=== PATIENT | male | born 1995 | race Caucasian/White ===

== ENCOUNTER 2020-03-22 21:55 | Emergency (ER) | payer BC, OTHER ==
[~2020-03-22] VITALS: Ht 172.7 cm; Wt 122.7 kg
[2020-03-22] MEDS ORDERED: CETI-24 PO (22:02)
[2020-03-22] MEDS ORDERED: ZOLO100T PO (22:02)
[2020-03-22 22:54] LABS: BASO # 0.1 10^3/uL (0.0-0.2); BASO % 0.5 % (0.0-1.0); EOS # 0.2 10^3/uL (0.0-0.5); EOS % 2.4 % (0.0-3.0); HEMATOCRIT 46.7 % (42.0-52.0); LYMPH % 30.6 % (24.0-44.0); MEAN CORPUSCULAR HEMOGLOBIN 30.1 pg (27.0-33.0); MEAN CORPUSCULAR HGB CONC 34.3 g/dl (32.0-36.5); MEAN CORPUSCULAR VOLUME 87.9 fl (80.0-96.0); MONO % 9.9 % (0.0-5.0); NEUTROPHILS # 5.5 10^3/uL (1.5-8.5); NEUTROPHILS % 56.3 % (36.0-66.0); PLATELET COUNT, AUTOMATED 280 10^3/uL (150-450); RED BLOOD COUNT 5.31 10^6/uL (4.30-6.10); WHITE BLOOD COUNT 9.7 10^3/uL (4.0-10.0)
[2020-03-22] MEDS ORDERED: SUCRALFATE 1 GM TAB PO ONE (23:15)
[2020-03-22] MEDS ORDERED: GI COCKTAIL 50ML BTL(HYOSCYAMINE/MAALOX/LIDOCAINE VISCOUS)(1:3:1) PO ONE (23:15)
[2020-03-22 23:26] LABS: ALBUMIN 4.1 GM/DL (3.2-5.2); BILIRUBIN,DIRECT 0.1 MG/DL (0.0-0.2); BILIRUBIN,TOTAL 0.5 MG/DL (0.2-1.0); TOTAL PROTEIN 7.7 GM/DL (6.4-8.2)
[2020-03-23] MEDS ORDERED: CARA1TAB6 PO (00:15)
[2020-03-23] MEDS ORDERED: OMEP1CAP73 PO (00:15)
[2020-03-23 00:23] VITALS: BP 136/82
== END 2020-03-23 00:24 | disposition home or self-care (01) ==
LOC: M ED 21:55
DX: R10.12 Left upper quadrant pain (principal); R11.2 Nausea with vomiting, unspecified; Z79.899 Other long term (current) drug therapy

== ENCOUNTER → 2020-05-28 | Outpatient (CLI) | payer MEDICAID ==
[~2020-05-28] MED LIST: CARA1TAB6 PO; CETI-24 PO; OMEP1CAP73 PO; ZOLO100T PO
== END ==
LOC: M LABSMTC 11:59
PROVIDERS: ATTEND Family Medicine
DX: Z20.828 Contact with and (suspected) exposure to other viral communicable diseases (principal)

== ENCOUNTER → 2021-07-28 | Outpatient (REF) | LOC: M LABSMTC 09:18 | PROVIDERS: ATTEND Pediatrics | DX: Z11.52 Encounter for screening for COVID-19 (principal) ==

== ENCOUNTER → 2021-08-02 | Outpatient (REF) | LOC: M LABSMTC 09:24 | PROVIDERS: ATTEND Family Medicine | DX: Z11.52 Encounter for screening for COVID-19 (principal) ==

== ENCOUNTER 2022-09-29 20:39 | Emergency (ER) | payer OTHER, SELFPAY ==
[~2022-09-29] VITALS: Ht 172.7 cm; Wt 127.9 kg
[2022-09-30 03:44] VITALS: BP 132/71
== END 2022-09-30 03:46 | disposition home or self-care (01) ==
LOC: M ED 20:39
DX: S63.91XA Sprain of unspecified part of right wrist and hand, initial encounter (principal); X50.0XXA Overexertion from strenuous movement or load, initial encounter; Y99.9 Unspecified external cause status

== ENCOUNTER 2022-12-18 18:22 | Emergency (ER) | payer SELFPAY ==
[~2022-12-18] VITALS: Ht 172.7 cm; Wt 124.5 kg
[2022-12-18] MEDS ORDERED: KETO10TAB PO (20:25)
[2022-12-18] MEDS ORDERED: NORCO, ANEXSIA 5/325MG TABLET (HYDROcodone/ACETAMINOPHEN) PO ONE (20:25)
[2022-12-18 20:41] VITALS: BP 138/70; TEMP 98.2; O2SAT 98
== END 2022-12-18 20:53 | disposition home or self-care (01) ==
LOC: M ED 18:22
DX: S20.219A Contusion of unspecified front wall of thorax, initial encounter (principal); W19.XXXA Unspecified fall, initial encounter; Y92.89 Other specified places as the place of occurrence of the external cause; Y93.64 Activity, baseball; Y99.8 Other external cause status; F41.9 Anxiety disorder, unspecified

== ENCOUNTER 2022-12-22 11:33 | Emergency (ER) | payer SELFPAY ==
[~2022-12-22] VITALS: Ht 175.3 cm; Wt 125.6 kg
[~2022-12-22 11:33] MED LIST changes: +KETO10TAB PO
[2022-12-22 11:34] VITALS: TEMP 98
[2022-12-22] MEDS ORDERED: IBUP200T46 PO (11:40)
[2022-12-22] MEDS ORDERED: LIDOCAINE 5% (LIDODERM) PATCH TD ONE (14:50)
[2022-12-22] MEDS ORDERED: NORCO, ANEXSIA 5/325MG TABLET (HYDROcodone/ACETAMINOPHEN) PO ONE (14:50)
[2022-12-22] MEDS ORDERED: HYDR-3713 PO (14:54)
[2022-12-22] MEDS ORDERED: LIDO5DIS41 TOP (14:54)
[2022-12-22 15:07] VITALS: BP 138/85; O2SAT 98
== END 2022-12-22 15:09 | disposition home or self-care (01) ==
LOC: M ED 11:33
DX: R07.89 Other chest pain (principal); S20.212A Contusion of left front wall of thorax, initial encounter; W19.XXXA Unspecified fall, initial encounter; Y92.89 Other specified places as the place of occurrence of the external cause; Y93.64 Activity, baseball; Y99.8 Other external cause status

== ENCOUNTER → 2023-05-10 | Outpatient (CLI) | payer SELFPAY, OTHER ==
[~2023-05-10] MED LIST changes: +HYDR-3713 PO; +IBUP200T46 PO; +LIDO5DIS41 TOP
== END ==
LOC: M SOG 05-09 15:19
PROVIDERS: ATTEND Orthopaedic Surgery
DX: M25.561 Pain in right knee (principal)

== ENCOUNTER → 2024-02-09 | Outpatient (CLI) | payer BC ==
[2024-02-09 15:44] LABS: THYROID STIMULATING HORMONE 1.656 uIU/ML (0.55-4.78)
[2024-02-09 15:45] LABS: FOLLICLE STIMULATING HORMONE 3.5 mIU/ML (1.4-18.1); PROLACTIN 15.7 NG/ML (2.1-17.7)
== END ==
LOC: M PLALAB 12:17
PROVIDERS: ATTEND Obstetrics & Gynecology
DX: N46.9 Male infertility, unspecified (principal)